=== PATIENT | female | born 1990 | race Two or more races ===

== ENCOUNTER 2017-11-15 12:27 | Outpatient (CLI) | payer OTHER ==
[~2017-11-15] VITALS: Ht 162.6 cm; Wt 68.1 kg
[~2017-11-15 12:27] MED LIST: PREN1TAB62 PO
[2017-11-15 12:33] VITALS: BP 112/53
== END 2017-11-15 15:25 | disposition home or self-care (01) ==
LOC: LDOP 12:27
PROVIDERS: ATTEND Obstetrics & Gynecology
DX: O36.8130 Decreased fetal movements, third trimester, not applicable or unspecified (principal); Z3A.28 28 weeks gestation of pregnancy
CPT/HCPCS: 59025; 76819; 99211; G0463

== ENCOUNTER 2018-01-22 18:07 | Outpatient (CLI) | payer OTHER ==
[~2018-01-22] VITALS: Ht 162.6 cm; Wt 73.6 kg
[2018-01-22 18:15] VITALS: BP 121/70
== END 2018-01-22 19:35 | disposition home or self-care (01) ==
LOC: LDOP 18:07
PROVIDERS: ATTEND Obstetrics & Gynecology
DX: O36.8130 Decreased fetal movements, third trimester, not applicable or unspecified (principal); Z3A.38 38 weeks gestation of pregnancy
CPT/HCPCS: 59025; 76819; 99211; G0463

== ENCOUNTER 2018-01-26 23:43 | Outpatient (CLI) | payer OTHER ==
[~2018-01-26] VITALS: Ht 162.6 cm; Wt 73.6 kg
[2018-01-27 00:04] VITALS: BP 136/71
== END 2018-01-27 01:56 | disposition home or self-care (01) ==
LOC: LDOP 23:43
PROVIDERS: ATTEND Obstetrics & Gynecology
DX: O62.9 Abnormality of forces of labor, unspecified (principal); Z3A.39 39 weeks gestation of pregnancy
CPT/HCPCS: 59025; 99211; G0463

== ENCOUNTER 2018-01-27 03:51 | Inpatient (IN) | payer OTHER ==
[~2018-01-27] VITALS: Ht 162.6 cm; Wt 73.2 kg
[2018-01-27] MEDS ORDERED: OXYTOCIN 30U/ 0.9% NaCL 500ML 500 ML ONE (03:58)
[2018-01-27] MEDS ORDERED: D5%-LACTATED RINGERS 1,000 ML IV SCH (03:59)
[2018-01-27] MEDS ORDERED: OXYTOCIN 30U/ 0.9% NaCL 500ML 500 ML IV ONE (03:59)
[2018-01-27] MEDS ORDERED: TERBUTALINE 1 MG/ML, 1ML IVPush PRN ×2 (04:00)
[2018-01-27] MEDS ORDERED: ALUMINUM/MAG/SIMETHICONE 30 ML UDC PO PRN (04:00)
[2018-01-27] MEDS ORDERED: FENTANYL PF 100 MCG/2ML IV PRN (04:00)
[2018-01-27] MEDS ORDERED: METOCLOPRAMIDE 5 MG/ML, 2ML IVPush PRN (04:00)
[2018-01-27] MEDS ORDERED: TERBUTALINE 1 MG/ML, 1ML SQ PRN (04:00)
[2018-01-27] MEDS ORDERED: FENTANYL PF 100 MCG/2ML IVPush PRN (04:00)
[2018-01-27] MEDS ORDERED: ONDANSETRON 2MG/ML, 2ML IVPush PRN (04:00)
[2018-01-27] MEDS ORDERED: SODIUM CITRATE/CITRIC ACID 30 ML UDC PO PRN (04:00)
[2018-01-27] MEDS ORDERED: CALCIUM CARBONATE 500 MG TAB.CHEW PO PRN ×2 (04:00→13:00)
[2018-01-27] MEDS ORDERED: FENTANYL/BUPIV./NS/PF 250 ML EPIDCONT SCH (04:02)
[2018-01-27 04:11] VITALS: BP 122/66
[2018-01-27] MEDS ORDERED: FENTANYL PF 100 MCG/2ML ONE ×2 (04:34→05:12)
[2018-01-27] MEDS: LACTATED RINGERS 1,000 ML IV SCH ×2 (04:41→06:04)
[2018-01-27 04:57] LABS: BASOPHILS # (AUTO) 0.02 x10^3/uL (0-0.1); BASOPHILS % (AUTO) 0 % (0-1); EOSINOPHILS # (AUTO) 0.06 x10^3/uL (0-0.4); EOSINOPHILS % (AUTO) 1 % (1-7); LYMPHOCYTES # (AUTO) 1.53 x10^3/uL (1-3.4); LYMPHOCYTES % (AUTO) 20 % (22-44); MD NO; MEAN CORPUSCULAR HEMOGLOBIN 30.6 pg (27.0-34.8); MEAN CORPUSCULAR HGB CONC 34.3 g/dL (32.4-35.8); MEAN CORPUSCULAR VOLUME 89.4 fL (80-100); MEAN PLATELET VOLUME 8.6 fL (7.4-10.4); MONOCYTES # (AUTO) 0.66 x10^3/uL (0.2-0.8); MONOCYTES % (AUTO) 9 % (2-9); NEUTROPHILS % (AUTO) 71 % (42-75); PLATELET COUNT 227 x10^3/uL (130-400); RED BLOOD COUNT 4.17 x10^6/uL (3.82-5.3); RED CELL DISTRIBUTION WIDTH 13.4 % (9.6-15.2)
[2018-01-27] MEDS ORDERED: BUPIVACAINE 0.25% ONE (05:12)
[2018-01-27] MEDS ORDERED: LIDOCAINE/PF 1.5%-EPI 1:200K, 30ML ONE (05:16)
[2018-01-27] MEDS ORDERED: OXYTOCIN 30U/ 0.9% NaCL 500ML 500 ML IV PRN (07:58)
[2018-01-27] MEDS ORDERED: LACTATED RINGERS 1,000 ML INTUTE PRN (11:00)
[2018-01-27] MEDS ORDERED: LACTATED RINGERS 1,000 ML INTUTE SCH (11:00)
[2018-01-27] MEDS ORDERED: OXYTOCIN 30U/ 0.9% NaCL 500ML 500 ML IV SCH (12:50)
[2018-01-27] MEDS ORDERED: RHOGAM FROM BLOOD BANK 1 NOTE EA IM/IV ONE (13:00)
[2018-01-27] MEDS ORDERED: ONDANSETRON 2MG/ML, 2ML IV PRN (13:00)
[2018-01-27] MEDS ORDERED: DIPH,PERTUSS(ACELL),TET VAC/PF NC IM-VACC PRN (13:00)
[2018-01-27] MEDS ORDERED: OXYcodone IR 5MG TABLET PO PRN (13:00)
[2018-01-27] MEDS ORDERED: MISOPROSTOL 200 MCG TABLET PR PRN (13:00)
[2018-01-27] MEDS ORDERED: MEASLES,MUMPS&RUBELLA VACC/PF 0.5 ML SQ PRN (13:00)
[2018-01-27] MEDS ORDERED: MAGNESIUM HYDROXIDE 8%, 30ML UDC PO PRN (13:00)
[2018-01-27] MEDS ORDERED: IBUPROFEN 600 MG TABLET ONE (13:37)
[2018-01-27] MEDS ORDERED: OXYcodone/APAP 5/325MG TABLET ONE (13:38)
[2018-01-27] MEDS: OXYcodone/APAP 5/325MG TABLET PO PRN ×2 (13:46→20:23)
[2018-01-27] MEDS: IBUPROFEN 600 MG TABLET PO PRN ×2 (13:46→20:22)
[2018-01-27 15:38] VITALS: BP 110/74
[2018-01-27 20:00] VITALS: BP 99/61
[2018-01-27 20:15] LABS: BASOPHILS # (AUTO) 0.04 x10^3/uL (0-0.1); BASOPHILS % (AUTO) 0 % (0-1); EOSINOPHILS # (AUTO) 0.03 x10^3/uL (0-0.4); EOSINOPHILS % (AUTO) 0 % (1-7); LYMPHOCYTES # (AUTO) 1.07 x10^3/uL (1-3.4); LYMPHOCYTES % (AUTO) 11 % (22-44); MD NO; MEAN CORPUSCULAR HEMOGLOBIN 30.9 pg (27.0-34.8); MEAN CORPUSCULAR HGB CONC 34.1 g/dL (32.4-35.8); MEAN CORPUSCULAR VOLUME 90.8 fL (80-100); MEAN PLATELET VOLUME 8.3 fL (7.4-10.4); MONOCYTES # (AUTO) 0.68 x10^3/uL (0.2-0.8); MONOCYTES % (AUTO) 7 % (2-9); NEUTROPHILS # (AUTO) 8.35 x10^3/uL (1.8-6.8); NEUTROPHILS % (AUTO) 82 % (42-75); PLATELET COUNT 191 x10^3/uL (130-400); RED BLOOD COUNT 3.54 x10^6/uL (3.82-5.3); RED CELL DISTRIBUTION WIDTH 13.6 % (9.6-15.2)
[2018-01-28] VITALS: BP 105/74
[2018-01-28] MEDS: OXYcodone/APAP 5/325MG TABLET PO PRN ×3 (04:51→14:56)
[2018-01-28] MEDS: IBUPROFEN 600 MG TABLET PO PRN ×3 (04:51→19:31)
[2018-01-28 05:00] VITALS: BP 100/71
[2018-01-28 07:50] VITALS: BP 95/59
[2018-01-28] MEDS: DOCUSATE 100 MG CAPSULE PO PRN ×2 (09:33→19:31)
[2018-01-28] MEDS: PRENATAL VIT/IRON/FA 1 EACH TABLET PO SCH (09:33)
[2018-01-28 19:30] VITALS: BP 90/58
[2018-01-29] MEDS: OXYcodone/APAP 5/325MG TABLET PO PRN ×3 (01:17→19:37)
[2018-01-29] MEDS: IBUPROFEN 600 MG TABLET PO PRN ×4 (03:29→19:37)
[2018-01-29] MEDS: PRENATAL VIT/IRON/FA 1 EACH TABLET PO SCH (08:01)
[2018-01-29] MEDS: DOCUSATE 100 MG CAPSULE PO PRN ×2 (08:01→19:37)
[2018-01-29 08:10] VITALS: BP 99/65
[2018-01-29] MEDS ORDERED: IBUP-1222 PO (09:49)
[2018-01-29] MEDS ORDERED: OXYC-302 PO (09:50)
== END 2018-01-29 23:55 | disposition home or self-care (01) | DRG 807 ==
LOC: LDOP 03:51 → EDIP 04:01 → LDIP 04:05 → 2NW 15:14
PROVIDERS: ADMIT Obstetrics & Gynecology; ATTEND Obstetrics & Gynecology
PROC: 0HQ9XZZ Repair Perineum Skin, External Approach (ICD-10-PCS; principal; 2018-01-27)
PROC: 10E0XZZ Delivery of Products of Conception, External Approach (ICD-10-PCS; 2018-01-27)
PROC: 10907ZC Drainage of Amniotic Fluid, Therapeutic from Products of Conception, Via Natural or Artificial Opening (ICD-10-PCS; 2018-01-27)
PROC: 10H07YZ Insertion of Other Device into Products of Conception, Via Natural or Artificial Opening (ICD-10-PCS; 2018-01-27)
PROC: 3E0R3BZ Introduction of Anesthetic Agent into Spinal Canal, Percutaneous Approach (ICD-10-PCS; 2018-01-27)
PROC: 00HU33Z Insertion of Infusion Device into Spinal Canal, Percutaneous Approach (ICD-10-PCS; 2018-01-27)
DX: O69.81X0 Labor and delivery complicated by cord around neck, without compression, not applicable or unspecified (principal); Z37.0 Single live birth; O76 Abnormality in fetal heart rate and rhythm complicating labor and delivery; O70.0 First degree perineal laceration during delivery; Z3A.37 37 weeks gestation of pregnancy
CPT/HCPCS: 36415; J7121; 82803; 85025; 86850; 86900; 90656; G0378; J3490; J2590; J7120

== ENCOUNTER 2018-02-04 07:15 | Emergency (ER) | payer OTHER ==
[~2018-02-04] VITALS: Ht 162.6 cm; Wt 68.9 kg
[~2018-02-04 07:15] MED LIST changes: +IBUP-1222 PO; +OXYC-302 PO
[2018-02-04] MEDS ORDERED: BISA-29 PO (07:33)
[2018-02-04] MEDS ORDERED: MORPHINE SULFATE 4 MG/ML, 1ML IVPush ONE (08:00)
[2018-02-04] MEDS ORDERED: LIDOCAINE GEL 2%, 5ML TP ONE (08:00)
[2018-02-04] MEDS ORDERED: MORPHINE SULFATE 4 MG/ML, 1ML ONE (08:13)
[2018-02-04 08:22] LABS: BASOPHILS # (AUTO) 0.03 x10^3/uL (0-0.1); BASOPHILS % (AUTO) 1 % (0-1); EOSINOPHILS # (AUTO) 0.16 x10^3/uL (0-0.4); EOSINOPHILS % (AUTO) 3 % (1-7); LYMPHOCYTES # (AUTO) 1.33 x10^3/uL (1-3.4); LYMPHOCYTES % (AUTO) 22 % (22-44); MD NO; MEAN CORPUSCULAR HEMOGLOBIN 29.9 pg (27.0-34.8); MEAN CORPUSCULAR HGB CONC 33.6 g/dL (32.4-35.8); MEAN CORPUSCULAR VOLUME 89.1 fL (80-100); MEAN PLATELET VOLUME 7.4 fL (7.4-10.4); MONOCYTES # (AUTO) 0.57 x10^3/uL (0.2-0.8); MONOCYTES % (AUTO) 10 % (2-9); NEUTROPHILS # (AUTO) 3.85 x10^3/uL (1.8-6.8); NEUTROPHILS % (AUTO) 65 % (42-75); PLATELET COUNT 295 x10^3/uL (130-400); RED BLOOD COUNT 4.57 x10^6/uL (3.82-5.3); RED CELL DISTRIBUTION WIDTH 13.7 % (9.6-15.2)
[2018-02-04] MEDS ORDERED: LIDOCAINE JELLY 2%, 30GM MM ONE (09:00)
[2018-02-04 09:01] LABS: ALANINE AMINOTRANSFERASE 38 U/L (12-78); ALBUMIN 3.1 g/dL (3.4-5.0); ANION GAP 8 mmol/L (5-15); CALCIUM 8.5 mg/dL (8.5-10.1); CHLORIDE 110 mmol/L (98-107); CREATININE 0.68 mg/dL (0.55-1.02)
[2018-02-04 09:03] LABS: ALKALINE PHOSPHATASE 90 U/L (45-117); BILIRUBIN,TOTAL 0.7 mg/dL (0.2-1.0); TOTAL PROTEIN 7.3 g/dL (6.4-8.2)
[2018-02-04 10:48] LABS: CULTURE INDICATED? YES; MICROSCOPIC INDICATED
[2018-02-04] MEDS ORDERED: CEFTRIAXONE PMX 1GM/50ML 50 ML IV ONE (11:30)
[2018-02-04] MEDS ORDERED: CEFTRIAXONE PMX 1GM/50ML 50 ML ONE (11:44)
[2018-02-04 13:13] VITALS: BP 106/71
== END 2018-02-04 13:17 | disposition home or self-care (01) ==
LOC: ED 09:52
DX: O90.89 Other complications of the puerperium, not elsewhere classified (principal); N30.00 Acute cystitis without hematuria
CPT/HCPCS: 36415; 76856; 80053; 81001; 85025; 87086; 96365; 96375; 99285; J0696

== ENCOUNTER 2018-10-15 22:22 | Emergency (ER) | payer OTHER ==
[~2018-10-15] VITALS: Ht 162.6 cm; Wt 63.1 kg
[~2018-10-15 22:22] MED LIST changes: +BISA-29 PO
[2018-10-15] MEDS ORDERED: SILVER SULF. CRM 1%, 400GM TP STA (22:44)
[2018-10-15] MEDS ORDERED: SILVER SULF. CRM 1% , 25GM ONE (22:49)
--- NOTE | 2018-10-15 22:54 | NUR ---
TECH AT BEDSIDE FOR WOUND CARE
[2018-10-15] MEDS ORDERED: SILVER SULF. CRM 1% , 25GM TP ONE (23:00)
[2018-10-15 23:08] VITALS: BP 116/70
== END 2018-10-15 23:11 | disposition home or self-care (01) ==
LOC: ED 22:52
DX: T23.001A Burn of unspecified degree of right hand, unspecified site, initial encounter (principal); T31.0 Burns involving less than 10% of body surface; W86.8XXA Exposure to other electric current, initial encounter; Y92.009 Unspecified place in unspecified non-institutional (private) residence as the place of occurrence of the external cause; Y93.89 Activity, other specified; Y99.8 Other external cause status
CPT/HCPCS: 16020; 93005; 99284

== ENCOUNTER 2019-06-07 09:26 | Emergency (ER) | payer OTHER ==
[~2019-06-07] VITALS: Ht 162.6 cm; Wt 59.9 kg
[2019-06-07 09:31] VITALS: BP 130/82
--- NOTE | 2019-06-07 10:29 | NUR ---
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 "PT NOT SURE OF HER STATUS" DISCUSSED WITH DR BOUCHER. TEST TO BE ORDERED.
[2019-06-07 10:39] LABS: BASOPHILS # (AUTO) 0.02 x10^3/uL (0-0.1); BASOPHILS % (AUTO) 0 % (0-1); EOSINOPHILS # (AUTO) 0.06 x10^3/uL (0-0.4); EOSINOPHILS % (AUTO) 1 % (1-7); LYMPHOCYTES # (AUTO) 1.06 x10^3/uL (1-3.4); LYMPHOCYTES % (AUTO) 23 % (22-44); MD NO; MEAN CORPUSCULAR HEMOGLOBIN 29.4 pg (27.0-34.8); MEAN CORPUSCULAR HGB CONC 33.4 g/dL (32.4-35.8); MEAN PLATELET VOLUME 8.2 fL (7.4-10.4); MONOCYTES # (AUTO) 0.53 x10^3/uL (0.2-0.8); MONOCYTES % (AUTO) 11 % (2-9); NEUTROPHILS # (AUTO) 3.05 x10^3/uL (1.8-6.8); NEUTROPHILS % (AUTO) 65 % (42-75); PLATELET COUNT 228 x10^3/uL (130-400)
[2019-06-07] MEDS ORDERED: BENZ100C PO (13:15)
== END 2019-06-07 11:38 ==
LOC: ED 11:32
DX: J00 Acute nasopharyngitis [common cold] (principal); R06.00 Dyspnea, unspecified
CPT/HCPCS: 36415; 71046; 84703; 85025; 99284